=== PATIENT | male | born 1945 | race Caucasian/White ===

== ENCOUNTER 2018-05-05 05:47 | Inpatient (IN) ==
[2018-05-05 07:06] LABS: Basophils # 0.1 10*3/uL (0.0-0.2); Eosinophils # 0.2 10*3/uL (0.0-0.87); Hematocrit 43.4 VOL% (42.0-52.0); Hemoglobin 14.5 GM/DL (14.0-18.0); Immature Granulocytes % 0.3 %; Immature Granulocytes Absolute 0.02 #; Lymphocytes # 1.5 10*3/uL (1.4-4.0); Lymphocytes % 19.6 % (21.2-54.2); Mean Corpuscular HGB Conc 33.4 GM/DL (32-36); Mean Corpuscular Hemoglobin 33 PG (27-34); Mean Corpuscular Volume 97.3 FL (87-102); Mean Platelet Volume 10.1 FL (9.6-12.0); Monocytes # 0.7 10*3/uL (0.11-0.8); Monocytes % 8.7 % (1.7-12.7); Neutrophils # 5.2 10*3/uL (1.4-7.4); Neutrophils % 67.4 % (38.7-73.9); Platelet Count 200 T/CUMM (130-400); Red Blood Count 4.46 MC/CUMM (3.8-5.5); Red Cell Distribution Width 13.1 % (9.3-17.3); White Blood Count 7.7 T/CUMM (4-12)
[2018-05-05 07:25] LABS: Calcium 8.6 MG/DL (8.5-10.1); Osmolality,Calculated 281.3 MOS/KG (273-304); Potassium 3.6 MMOL/L (3.5-5.1)
[2018-05-05] MEDS ORDERED: ALBUTEROL 2.5 MG/3 ML NEB RESP TX ONE (07:31)
[2018-05-05] MEDS ORDERED: LIDOCAINE 1% 20 ML VIAL ONE (08:19)
[2018-05-05] MEDS ORDERED: HEPARIN/NACL 0.9% 2 UNITS/ML 2,000 ML IV ONE (08:19)
[2018-05-05] MEDS ORDERED: HEPARIN/NACL 0.9% 2 UNITS/ML 1,000 ML IV ONE (08:20)
[2018-05-05 08:48] LABS: Apearance,Urine CLEAR (Clear); Bilirubin,Urine Negative (Negative); Blood, Urine Negative (Negative); Glucose,Urine (UA) Negative (Negative); Ketones,Urine Negative (Negative); Mucus,Urine Occasional /LPF (Occasional); Nitrite,Urine Negative (Negative); Protein,Urine Negative; RBC,Urine 2 /HPF (0-4); Urine Color Straw (Yellow); Urine Specific Gravity 1.008 (1.001-1.035); Urine Urobilinogen < 2.0 EU/DL (0.2-1.0); WBC,Urine <1 /HPF (0-6)
[2018-05-05] MEDS ORDERED: HEPARIN DRIP 25,000 UNITS/500 ML PREMIX IV ONE (09:38)
[2018-05-05] MEDS ORDERED: GLUCAGON 1 MG VIAL IM PRN (11:34)
[2018-05-05] MEDS ORDERED: ZALEPLON 5 MG CAPSULE PO PRN (11:34)
[2018-05-05] MEDS ORDERED: MORPHINE 4 MG/1 ML VIAL IV PRN (11:34)
[2018-05-05] MEDS ORDERED: ASPIRIN EC 325 MG TABLET PO ONE ×2 (11:34→17:57)
[2018-05-05] MEDS ORDERED: ACETAMINOPHEN 325 MG TABLET PO PRN (11:34)
[2018-05-05] MEDS ORDERED: DEXTROSE 50% 25 GM/50 ML VIAL IV PRN (11:34)
[2018-05-05] MEDS ORDERED: ONDANSETRON 4 MG/2 ML VIAL IV PRN (11:34)
[2018-05-05] MEDS ORDERED: NITROGLYCERIN SL 0.4 MG TABLET SL PRN (11:35)
[2018-05-05] MEDS ORDERED: METOPROLOL SUCCINATE XL 50 MG TABLET PO SCH (12:00)
[2018-05-05] MEDS ORDERED: PHENYLEPHRINE 10 MG/1 ML VIAL IV ONE (12:18)
[2018-05-05] MEDS ORDERED: ETOMIDATE 40 MG/20 ML VIAL IV ONE (12:18)
[2018-05-05] MEDS ORDERED: PROPOFOL 200 MG/20 ML VIAL IV ONE (12:18)
[2018-05-05] MEDS ORDERED: SODIUM CHLORIDE 0.9% 250 ML IV ONE (12:18)
[2018-05-05] MEDS ORDERED: LACTATED RINGERS 1,000 ML IV ONE (12:18)
[2018-05-05] MEDS ORDERED: MIDAZOLAM 2 MG/2 ML VIAL ONE (12:18)
[2018-05-05] MEDS ORDERED: SEVOFLURANE 1 UNIT/15 MINUTE INH ONE (12:18)
[2018-05-05] MEDS ORDERED: ROCURONIUM 100 MG/10 ML VIAL IV ONE (12:18)
[2018-05-05] MEDS ORDERED: fentaNYL 100 MCG/2 ML VIAL ONE (12:18)
[2018-05-05] MEDS ORDERED: ONDANSETRON 4 MG/2 ML VIAL ONE (12:18)
[2018-05-05] MEDS ORDERED: FUROSEMIDE 20 MG/2 ML VIAL ONE (12:19)
[2018-05-05] MEDS ORDERED: PROTAMINE SULFATE 50 MG/5 ML VIAL IV ONE (12:19)
[2018-05-05] MEDS ORDERED: HEPARIN 10,000 UNIT/10 ML VIAL ONE (12:19)
[2018-05-05] MEDS ORDERED: INFLUENZA VIRUS VACCINE 0.5 ML SYRINGE IM ONE (13:37)
[2018-05-05] MEDS ORDERED: diphenhydrAMINE CAP 25 MG CAPSULE PO PRN (14:09)
[2018-05-05] MEDS: IPRATROPIUM 500 MCG/2.5 ML NEB RESP TX SCH ×2 (16:23→19:18)
[2018-05-05] MEDS: PANTOPRAZOLE 40 MG TABLET PO SCH ×2 (18:15→21:21)
[2018-05-05] MEDS: INSULIN LISPRO 100 UNIT/ML SUBCUT SCH ×2 (18:15→21:28)
[2018-05-05] MEDS: METOPROLOL SUCCINATE XL 50 MG TABLET PO SCH ×2 (18:15→21:20)
[2018-05-05] MEDS: metFORMIN 500 MG TABLET PO SCH (18:15)
[2018-05-05] MEDS ORDERED: ALBUTEROL 2.5 MG/3 ML NEB RESP TX PRN (19:00)
[2018-05-05] MEDS: MAGNESIUM OXIDE 400 MG TABLET PO SCH (21:20)
[2018-05-05] MEDS: ATORVASTATIN 20 MG TABLET PO SCH (21:20)
[2018-05-05] MEDS: amLODIPine 10 MG TABLET PO SCH (21:21)
[2018-05-05] MEDS: APIXABAN 5 MG TABLET PO SCH (21:21)
[2018-05-05] MEDS: CHOLECALCIFEROL 1,000 UNIT TABLET PO SCH (21:23)
[2018-05-06 04:35] LABS: Calcium 8.5 MG/DL (8.5-10.1)
[2018-05-06 04:37] LABS: Basophils # 0.1 10*3/uL (0.0-0.2); Basophils % 0.5 % (0.0-0.8); Eosinophils # 0.1 10*3/uL (0.0-0.87); Eosinophils % 0.7 % (0.00-10.9); Hematocrit 44.8 VOL% (42.0-52.0); Hemoglobin 14.6 GM/DL (14.0-18.0); Immature Granulocytes % 0.4 %; Immature Granulocytes Absolute 0.06 #; Lymphocytes # 1.4 10*3/uL (1.4-4.0); Lymphocytes % 10.6 % (21.2-54.2); Mean Corpuscular HGB Conc 32.6 GM/DL (32-36); Mean Corpuscular Hemoglobin 33 PG (27-34); Mean Corpuscular Volume 99.8 FL (87-102); Mean Platelet Volume 10.5 FL (9.6-12.0); Monocytes # 1.2 10*3/uL (0.11-0.8); Monocytes % 8.9 % (1.7-12.7); Neutrophils # 10.7 10*3/uL (1.4-7.4); Neutrophils % 78.9 % (38.7-73.9); Platelet Count 209 T/CUMM (130-400); Red Blood Count 4.49 MC/CUMM (3.8-5.5); Red Cell Distribution Width 13.3 % (9.3-17.3); White Blood Count 13.5 T/CUMM (4-12)
[2018-05-06 04:43] LABS: Calcium 8.6 MG/DL (8.5-10.1); Potassium 3.9 MMOL/L (3.5-5.1)
[2018-05-06] MEDS: IPRATROPIUM 500 MCG/2.5 ML NEB RESP TX SCH ×4 (07:21→19:09)
[2018-05-06] MEDS: LOSARTAN 50 MG TABLET PO SCH (08:10)
[2018-05-06] MEDS: APIXABAN 5 MG TABLET PO SCH ×2 (08:10→22:02)
[2018-05-06] MEDS: metFORMIN 500 MG TABLET PO SCH ×2 (08:10→16:37)
[2018-05-06] MEDS: ASPIRIN EC 81 MG TABLET PO SCH (08:10)
[2018-05-06] MEDS: METOPROLOL SUCCINATE XL 50 MG TABLET PO SCH ×2 (08:10→22:03)
[2018-05-06] MEDS: PANTOPRAZOLE 40 MG TABLET PO SCH ×2 (08:10→22:02)
[2018-05-06] MEDS: INSULIN LISPRO 100 UNIT/ML SUBCUT SCH ×4 (08:29→22:07)
[2018-05-06] MEDS ORDERED: FUROSEMIDE 40 MG TABLET PO ONE (09:53)
[2018-05-06] MEDS: methylPREDNISolone SOD SUC 40 MG/1 ML VIAL IV SCH ×2 (16:37→22:03)
[2018-05-06] MEDS: ATORVASTATIN 20 MG TABLET PO SCH (22:02)
[2018-05-06] MEDS: MAGNESIUM OXIDE 400 MG TABLET PO SCH (22:02)
[2018-05-06] MEDS: amLODIPine 10 MG TABLET PO SCH (22:03)
[2018-05-06] MEDS: CHOLECALCIFEROL 1,000 UNIT TABLET PO SCH (22:03)
[2018-05-07] MEDS: ALBUTEROL/IPRATROPIUM 3 ML NEB RESP TX SCH ×2 (00:18→07:09)
[2018-05-07] MEDS ORDERED: METOPROLOL TARTRATE 5 MG/5 ML VIAL IV PRN (02:07)
[2018-05-07] MEDS: methylPREDNISolone SOD SUC 40 MG/1 ML VIAL IV SCH ×2 (02:24→09:11)
[2018-05-07 03:43] LABS: Basophils % 0.2 % (0.0-0.8); Hematocrit 42.5 VOL% (42.0-52.0); Hemoglobin 14.1 GM/DL (14.0-18.0); Immature Granulocytes % 0.7 %; Immature Granulocytes Absolute 0.06 #; Lymphocytes # 0.3 10*3/uL (1.4-4.0); Lymphocytes % 3.6 % (21.2-54.2); Mean Corpuscular HGB Conc 33.2 GM/DL (32-36); Mean Corpuscular Hemoglobin 33 PG (27-34); Mean Corpuscular Volume 98.4 FL (87-102); Mean Platelet Volume 10.3 FL (9.6-12.0); Monocytes # 0.1 10*3/uL (0.11-0.8); Monocytes % 0.9 % (1.7-12.7); Neutrophils # 8.3 10*3/uL (1.4-7.4); Neutrophils % 94.6 % (38.7-73.9); Platelet Count 168 T/CUMM (130-400); Red Blood Count 4.32 MC/CUMM (3.8-5.5); Red Cell Distribution Width 12.9 % (9.3-17.3); White Blood Count 8.7 T/CUMM (4-12)
[2018-05-07 03:59] LABS: Calcium 8.7 MG/DL (8.5-10.1); Osmolality,Calculated 279.2 MOS/KG (273-304); Potassium 3.8 MMOL/L (3.5-5.1)
[2018-05-07 04:23] LABS: Hypochromasia 1+; Lymphocytes 2 % (20-55); Platelet Estimate Adequate; Segmented Neutrophils 96 % (50-85); Total Cells Counted 100
[2018-05-07] MEDS: INSULIN LISPRO 100 UNIT/ML SUBCUT SCH ×2 (08:58→12:14)
[2018-05-07] MEDS: ASPIRIN EC 81 MG TABLET PO SCH (09:10)
[2018-05-07] MEDS: metFORMIN 500 MG TABLET PO SCH (09:10)
[2018-05-07] MEDS: METOPROLOL SUCCINATE XL 50 MG TABLET PO SCH (09:10)
[2018-05-07] MEDS: PANTOPRAZOLE 40 MG TABLET PO SCH (09:11)
[2018-05-07] MEDS: LOSARTAN 50 MG TABLET PO SCH (09:11)
[2018-05-07] MEDS: APIXABAN 5 MG TABLET PO SCH (09:11)
[2018-05-07 12:32] VITALS: BP 134/72
== END 2018-05-07 13:50 | disposition home or self-care (01) | DRG 274 ==
LOC: N.CL 05:47 → N.TELES 12:45
PROVIDERS: ADMIT Internal Medicine Clinical Cardiac Electrophysiology; ATTEND Internal Medicine Clinical Cardiac Electrophysiology

== ENCOUNTER 2018-07-08 11:14 | Inpatient (IN) ==
[2018-07-08] MEDS ORDERED: FUROSEMIDE 100 MG/10 ML VIAL IV STA (12:20)
[2018-07-08] MEDS ORDERED: ALBUTEROL 2.5 MG/3 ML NEB RESP TX STA (12:20)
[2018-07-08 13:04] LABS: Albumin 3.5 G/DL (3.4-5.0); Bilirubin,Total 0.8 MG/DL (0.2-1.0); Calcium 8.5 MG/DL (8.5-10.1); Osmolality,Calculated 288.3 MOS/KG (273-304); Total Protein 7.7 G/DL (6.4-8.3)
[2018-07-08 13:10] LABS: Basophils # 0.1 10*3/uL (0.0-0.2); Basophils % 0.7 % (0.0-0.8); Eosinophils # 0.1 10*3/uL (0.0-0.87); Eosinophils % 0.9 % (0.00-10.9); Hematocrit 42.7 VOL% (42.0-52.0); Hemoglobin 13.7 GM/DL (14.0-18.0); Immature Granulocytes % 0.2 %; Immature Granulocytes Absolute 0.02 #; Lymphocytes # 1.4 10*3/uL (1.4-4.0); Lymphocytes % 17.1 % (21.2-54.2); Mean Corpuscular HGB Conc 32.1 GM/DL (32-36); Mean Corpuscular Hemoglobin 32 PG (27-34); Mean Corpuscular Volume 99.8 FL (87-102); Mean Platelet Volume 10.5 FL (9.6-12.0); Monocytes # 0.7 10*3/uL (0.11-0.8); Monocytes % 8.3 % (1.7-12.7); Neutrophils # 5.9 10*3/uL (1.4-7.4); Neutrophils % 72.8 % (38.7-73.9); Platelet Count 200 T/CUMM (130-400); Red Blood Count 4.28 MC/CUMM (3.8-5.5); Red Cell Distribution Width 14.3 % (9.3-17.3); White Blood Count 8.1 T/CUMM (4-12)
[2018-07-08 13:20] LABS: INR 1.2; PT Patient Result 12.8 SECS; Partial Thromboplastin Time 29.2 SECS (0-40)
[2018-07-08] MEDS ORDERED: MAGNESIUM SULF RIDER 4 GM in PREMIX 1 EACH IV PRN (15:07)
[2018-07-08] MEDS ORDERED: ONDANSETRON 4 MG/2 ML VIAL IV PRN (15:07)
[2018-07-08] MEDS ORDERED: MAGNESIUM SULF RIDER 2 GM in PREMIX 1 EACH IV PRN (15:07)
[2018-07-08] MEDS ORDERED: ACETAMINOPHEN 325 MG TABLET PO PRN (15:07)
[2018-07-08] MEDS ORDERED: ZALEPLON 5 MG CAPSULE PO PRN (15:07)
[2018-07-08 17:00] LABS: Troponin I 0.022 NG/ML (0.00-0.045)
[2018-07-08] MEDS ORDERED: ALBUTEROL 2.5 MG/3 ML NEB RESP TX PRN (17:21)
[2018-07-08] MEDS ORDERED: NITROGLYCERIN SL 0.4 MG TABLET SL PRN (17:21)
[2018-07-08] MEDS ORDERED: ALBUTEROL/IPRATROPIUM 3 ML NEB RESP TX SCH (19:00)
[2018-07-08] MEDS: ARFORMOTEROL 15 MCG/2 ML NEB RESP TX SCH (20:17)
[2018-07-08 20:36] LABS: Apearance,Urine CLEAR (Clear); Bacteria,Urine Occasional /HPF (Few); Bilirubin,Urine Negative (Negative); Blood, Urine Negative (Negative); Glucose,Urine (UA) Negative (Negative); Hyaline Casts,Urine 4 /LPF (0-3); Ketones,Urine Negative (Negative); Mucus,Urine Occasional /LPF (Occasional); Nitrite,Urine Negative (Negative); Protein,Urine Negative; RBC,Urine <1 /HPF (0-4); Urine Color Yellow (Yellow); Urine Specific Gravity 1.006 (1.001-1.035); Urine Urobilinogen < 2.0 EU/DL (0.2-1.0)
[2018-07-08] MEDS: ALBUTEROL/IPRATROPIUM 3 ML NEB RESP TX PRN (21:11)
[2018-07-08] MEDS: CHOLECALCIFEROL 1,000 UNIT TABLET PO SCH (22:18)
[2018-07-08] MEDS: DILTIAZEM CD 240 MG CAPSULE PO SCH (22:18)
[2018-07-08] MEDS: ATORVASTATIN 20 MG TABLET PO SCH (22:19)
[2018-07-08] MEDS: FUROSEMIDE 40 MG/4 ML VIAL IV SCH (22:19)
[2018-07-08] MEDS: APIXABAN 5 MG TABLET PO SCH (22:19)
[2018-07-08] MEDS: POTASSIUM CHLORIDE 20 MEQ TABLET PO SCH ×2 (22:20→22:21)
[2018-07-08] MEDS: METOPROLOL SUCCINATE XL 100 MG TABLET PO SCH (22:22)
[2018-07-08] MEDS: MAGNESIUM OXIDE 400 MG TABLET PO SCH (22:23)
[2018-07-08 22:54] LABS: ABG Base Excess 4.8 MMOL/L (-2.5-2.5); ABG Oxygen Saturation 69.1 % (95-100); ABG PCO2 41.8 MM HG (35-48); ABG PH 7.453 (7.35-7.45); ABG TCO2 25.2 MMOL/L (23-27); Allen Test Positive
[2018-07-08 23:02] LABS: ABG PO2 37.7 MM HG (80-95)
[2018-07-08] MEDS: INSULIN REGULAR 100 UNIT/ML SUBCUT SCH ×2 (23:45→23:48)
[2018-07-08 23:46] LABS: Troponin I 0.018 NG/ML (0.00-0.045)
[2018-07-09] MEDS: ALBUTEROL/IPRATROPIUM 3 ML NEB RESP TX PRN (00:57)
[2018-07-09 06:13] LABS: Basophils # 0.1 10*3/uL (0.0-0.2); Basophils % 0.8 % (0.0-0.8); Eosinophils # 0.1 10*3/uL (0.0-0.87); Eosinophils % 1.2 % (0.00-10.9); Hematocrit 42.4 VOL% (42.0-52.0); Hemoglobin 13.7 GM/DL (14.0-18.0); Immature Granulocytes % 0.2 %; Immature Granulocytes Absolute 0.02 #; Lymphocytes # 1.5 10*3/uL (1.4-4.0); Lymphocytes % 17.2 % (21.2-54.2); Mean Corpuscular HGB Conc 32.3 GM/DL (32-36); Mean Corpuscular Hemoglobin 32 PG (27-34); Mean Corpuscular Volume 98.4 FL (87-102); Mean Platelet Volume 10.8 FL (9.6-12.0); Monocytes # 0.9 10*3/uL (0.11-0.8); Monocytes % 10.4 % (1.7-12.7); Neutrophils % 70.2 % (38.7-73.9); Platelet Count 225 T/CUMM (130-400); Red Blood Count 4.31 MC/CUMM (3.8-5.5); Red Cell Distribution Width 14.3 % (9.3-17.3); White Blood Count 8.5 T/CUMM (4-12)
[2018-07-09 06:38] LABS: Calcium 8.7 MG/DL (8.5-10.1); Potassium 3.5 MMOL/L (3.5-5.1); Risk Ratio 2.69
[2018-07-09] MEDS: ARFORMOTEROL 15 MCG/2 ML NEB RESP TX SCH ×2 (07:49→19:00)
[2018-07-09 08:25] LABS: Troponin I 0.018 NG/ML (0.00-0.045)
[2018-07-09] MEDS: LOSARTAN 50 MG TABLET PO SCH (09:38)
[2018-07-09] MEDS: DILTIAZEM CD 240 MG CAPSULE PO SCH ×2 (09:38→21:31)
[2018-07-09] MEDS: POTASSIUM CHLORIDE 20 MEQ TABLET PO SCH ×2 (09:38→21:42)
[2018-07-09] MEDS: APIXABAN 5 MG TABLET PO SCH ×2 (09:38→21:33)
[2018-07-09] MEDS: ASPIRIN EC 81 MG TABLET PO SCH (09:39)
[2018-07-09] MEDS: INSULIN REGULAR 100 UNIT/ML SUBCUT SCH ×4 (09:39→21:36)
[2018-07-09] MEDS: FUROSEMIDE 40 MG/4 ML VIAL IV SCH ×2 (09:39→21:36)
[2018-07-09] MEDS: METOPROLOL SUCCINATE XL 100 MG TABLET PO SCH ×2 (09:39→21:31)
[2018-07-09] MEDS: PANTOPRAZOLE 40 MG TABLET PO SCH (09:39)
[2018-07-09] MEDS: methylPREDNISolone SOD SUC 40 MG/1 ML VIAL IV SCH ×3 (09:53→21:27)
[2018-07-09] MEDS: ALBUTEROL/IPRATROPIUM 3 ML NEB RESP TX SCH ×4 (13:43→23:00)
[2018-07-09] MEDS: MAGNESIUM OXIDE 400 MG TABLET PO SCH (21:32)
[2018-07-09] MEDS: ATORVASTATIN 20 MG TABLET PO SCH (21:32)
[2018-07-09] MEDS: CHOLECALCIFEROL 1,000 UNIT TABLET PO SCH (21:32)
[2018-07-10] MEDS: ALBUTEROL/IPRATROPIUM 3 ML NEB RESP TX SCH ×6 (03:09→23:51)
[2018-07-10] MEDS: methylPREDNISolone SOD SUC 40 MG/1 ML VIAL IV SCH ×4 (03:37→20:37)
[2018-07-10 05:22] LABS: Basophils % 0.1 % (0.0-0.8); Hematocrit 42.1 VOL% (42.0-52.0); Hemoglobin 13.5 GM/DL (14.0-18.0); Immature Granulocytes % 0.4 %; Immature Granulocytes Absolute 0.03 #; Lymphocytes # 0.3 10*3/uL (1.4-4.0); Lymphocytes % 4.5 % (21.2-54.2); Mean Corpuscular HGB Conc 32.1 GM/DL (32-36); Mean Corpuscular Hemoglobin 32 PG (27-34); Mean Corpuscular Volume 99.1 FL (87-102); Mean Platelet Volume 10.8 FL (9.6-12.0); Monocytes # 0.2 10*3/uL (0.11-0.8); Monocytes % 2.3 % (1.7-12.7); Neutrophils # 6.8 10*3/uL (1.4-7.4); Neutrophils % 92.7 % (38.7-73.9); Platelet Count 228 T/CUMM (130-400); Red Blood Count 4.25 MC/CUMM (3.8-5.5); White Blood Count 7.3 T/CUMM (4-12)
[2018-07-10 05:59] LABS: Calcium 9.3 MG/DL (8.5-10.1); Osmolality,Calculated 285.7 MOS/KG (273-304); Potassium 4.4 MMOL/L (3.5-5.1)
[2018-07-10 06:08] LABS: Hypochromasia 1+; Lymphocytes 4 % (20-55); Platelet Estimate Adequate; Segmented Neutrophils 95 % (50-85); Total Cells Counted 100
[2018-07-10] MEDS: ARFORMOTEROL 15 MCG/2 ML NEB RESP TX SCH ×2 (07:29→19:32)
[2018-07-10] MEDS: DILTIAZEM CD 240 MG CAPSULE PO SCH (08:42)
[2018-07-10] MEDS: POTASSIUM CHLORIDE 20 MEQ TABLET PO SCH ×2 (08:42→20:36)
[2018-07-10] MEDS: METOPROLOL SUCCINATE XL 100 MG TABLET PO SCH ×2 (08:42→20:36)
[2018-07-10] MEDS: ASPIRIN EC 81 MG TABLET PO SCH (08:42)
[2018-07-10] MEDS: PANTOPRAZOLE 40 MG TABLET PO SCH (08:42)
[2018-07-10] MEDS: APIXABAN 5 MG TABLET PO SCH ×2 (08:42→20:36)
[2018-07-10] MEDS: LOSARTAN 50 MG TABLET PO SCH (08:42)
[2018-07-10] MEDS: FUROSEMIDE 40 MG/4 ML VIAL IV SCH ×2 (08:43→16:36)
[2018-07-10] MEDS: INSULIN REGULAR 100 UNIT/ML SUBCUT SCH ×4 (09:01→22:26)
[2018-07-10] MEDS: DOCUSATE SODIUM 100 MG CAPSULE PO PRN (18:15)
[2018-07-10] MEDS: CHOLECALCIFEROL 1,000 UNIT TABLET PO SCH (20:36)
[2018-07-10] MEDS: ATORVASTATIN 20 MG TABLET PO SCH (20:36)
[2018-07-10] MEDS: MAGNESIUM OXIDE 400 MG TABLET PO SCH (20:36)
[2018-07-11] MEDS: FUROSEMIDE 40 MG/4 ML VIAL IV SCH ×2 (00:10→09:20)
[2018-07-11] MEDS: methylPREDNISolone SOD SUC 40 MG/1 ML VIAL IV SCH ×4 (03:15→20:21)
[2018-07-11] MEDS: ALBUTEROL/IPRATROPIUM 3 ML NEB RESP TX SCH ×5 (03:36→18:54)
[2018-07-11 03:40] LABS: Basophils % 0.1 % (0.0-0.8); Hematocrit 40.5 VOL% (42.0-52.0); Hemoglobin 13.2 GM/DL (14.0-18.0); Immature Granulocytes % 1.1 %; Immature Granulocytes Absolute 0.16 #; Lymphocytes # 0.4 10*3/uL (1.4-4.0); Lymphocytes % 2.8 % (21.2-54.2); Mean Corpuscular HGB Conc 32.6 GM/DL (32-36); Mean Corpuscular Hemoglobin 32 PG (27-34); Mean Corpuscular Volume 98.1 FL (87-102); Mean Platelet Volume 10.8 FL (9.6-12.0); Monocytes # 0.5 10*3/uL (0.11-0.8); Monocytes % 3.9 % (1.7-12.7); Neutrophils # 12.8 10*3/uL (1.4-7.4); Neutrophils % 92.1 % (38.7-73.9); Platelet Count 240 T/CUMM (130-400); Red Blood Count 4.13 MC/CUMM (3.8-5.5); Red Cell Distribution Width 14.4 % (9.3-17.3); White Blood Count 13.9 T/CUMM (4-12)
[2018-07-11 04:04] LABS: Calcium 8.9 MG/DL (8.5-10.1); Osmolality,Calculated 284.1 MOS/KG (273-304)
[2018-07-11 05:14] LABS: Lymphocytes 3 % (20-55); Platelet Estimate Normal; Segmented Neutrophils 94 % (50-85); Total Cells Counted 100
[2018-07-11 05:15] LABS: Hypochromasia 2+
[2018-07-11] MEDS: METOPROLOL SUCCINATE XL 100 MG TABLET PO SCH ×2 (08:41→20:21)
[2018-07-11] MEDS: LOSARTAN 50 MG TABLET PO SCH (08:41)
[2018-07-11] MEDS: ASPIRIN EC 81 MG TABLET PO SCH (08:42)
[2018-07-11] MEDS: POTASSIUM CHLORIDE 20 MEQ TABLET PO SCH ×2 (08:42→20:20)
[2018-07-11] MEDS: PANTOPRAZOLE 40 MG TABLET PO SCH (08:42)
[2018-07-11] MEDS: APIXABAN 5 MG TABLET PO SCH ×2 (08:42→20:19)
[2018-07-11] MEDS: ARFORMOTEROL 15 MCG/2 ML NEB RESP TX SCH ×2 (08:55→18:54)
[2018-07-11] MEDS: INSULIN REGULAR 100 UNIT/ML SUBCUT SCH ×4 (08:57→20:20)
[2018-07-11] MEDS ORDERED: FUROSEMIDE 40 MG/4 ML VIAL IV SCH (09:00)
[2018-07-11] MEDS: DOCUSATE SODIUM 100 MG CAPSULE PO PRN (14:41)
[2018-07-11] MEDS: ATORVASTATIN 20 MG TABLET PO SCH (20:20)
[2018-07-11] MEDS: MAGNESIUM OXIDE 400 MG TABLET PO SCH (20:21)
[2018-07-11] MEDS: CHOLECALCIFEROL 1,000 UNIT TABLET PO SCH (20:21)
[2018-07-12] MEDS: ALBUTEROL/IPRATROPIUM 3 ML NEB RESP TX SCH ×7 (00:24→23:27)
[2018-07-12] MEDS: methylPREDNISolone SOD SUC 40 MG/1 ML VIAL IV SCH ×4 (03:10→17:21)
[2018-07-12 05:08] LABS: Basophils % 0.1 % (0.0-0.8); Hematocrit 41.1 VOL% (42.0-52.0); Immature Granulocytes % 0.9 %; Immature Granulocytes Absolute 0.11 #; Lymphocytes # 0.3 10*3/uL (1.4-4.0); Lymphocytes % 2.4 % (21.2-54.2); Mean Corpuscular HGB Conc 31.6 GM/DL (32-36); Mean Corpuscular Hemoglobin 32 PG (27-34); Mean Platelet Volume 10.6 FL (9.6-12.0); Monocytes # 0.4 10*3/uL (0.11-0.8); Monocytes % 3.6 % (1.7-12.7); Platelet Count 226 T/CUMM (130-400); Red Blood Count 4.11 MC/CUMM (3.8-5.5); Red Cell Distribution Width 14.3 % (9.3-17.3); White Blood Count 11.8 T/CUMM (4-12)
[2018-07-12 05:24] LABS: Calcium 7.7 MG/DL (8.5-10.1); Potassium 5.2 MMOL/L (3.5-5.1)
[2018-07-12 05:32] LABS: Hypochromasia 1+; Lymphocytes 1 % (20-55); Segmented Neutrophils 96 % (50-85); Total Cells Counted 100
[2018-07-12 05:33] LABS: Microcytosis Slight; Platelet Estimate Normal
[2018-07-12] MEDS: ARFORMOTEROL 15 MCG/2 ML NEB RESP TX SCH ×2 (07:51→20:25)
[2018-07-12] MEDS ORDERED: FUROSEMIDE 40 MG/4 ML VIAL IV SCH (09:00)
[2018-07-12] MEDS: INSULIN REGULAR 100 UNIT/ML SUBCUT SCH ×4 (09:13→21:26)
[2018-07-12] MEDS: METOPROLOL SUCCINATE XL 100 MG TABLET PO SCH ×2 (09:14→21:04)
[2018-07-12] MEDS: LOSARTAN 50 MG TABLET PO SCH (09:14)
[2018-07-12] MEDS: PANTOPRAZOLE 40 MG TABLET PO SCH (09:15)
[2018-07-12] MEDS: APIXABAN 5 MG TABLET PO SCH ×2 (09:15→21:03)
[2018-07-12] MEDS: ASPIRIN EC 81 MG TABLET PO SCH (09:15)
[2018-07-12] MEDS: POTASSIUM CHLORIDE 20 MEQ TABLET PO SCH (09:17)
[2018-07-12] MEDS: metOLazone 5 MG TABLET PO SCH (12:20)
[2018-07-12] MEDS: DILTIAZEM CD 120 MG CAPSULE PO SCH (15:39)
[2018-07-12] MEDS: DIGOXIN 0.25 MG TABLET PO SCH ×2 (15:39→21:03)
[2018-07-12] MEDS: FUROSEMIDE 40 MG/4 ML VIAL IV SCH (15:39)
[2018-07-12] MEDS: ATORVASTATIN 20 MG TABLET PO SCH (21:04)
[2018-07-12] MEDS: MAGNESIUM OXIDE 400 MG TABLET PO SCH (21:04)
[2018-07-12] MEDS: CHOLECALCIFEROL 1,000 UNIT TABLET PO SCH (21:04)
[2018-07-13] MEDS: methylPREDNISolone SOD SUC 40 MG/1 ML VIAL IV SCH ×3 (02:12→17:59)
[2018-07-13] MEDS: ALBUTEROL/IPRATROPIUM 3 ML NEB RESP TX SCH ×6 (02:31→22:32)
[2018-07-13 04:32] LABS: Calcium 8.8 MG/DL (8.5-10.1)
[2018-07-13 06:59] LABS: Basophils % 0.2 % (0.0-0.8); Hematocrit 44.7 VOL% (42.0-52.0); Hemoglobin 14.2 GM/DL (14.0-18.0); Immature Granulocytes % 0.7 %; Immature Granulocytes Absolute 0.09 #; Lymphocytes # 0.4 10*3/uL (1.4-4.0); Mean Corpuscular HGB Conc 31.8 GM/DL (32-36); Mean Corpuscular Hemoglobin 32 PG (27-34); Mean Corpuscular Volume 99.6 FL (87-102); Monocytes # 0.7 10*3/uL (0.11-0.8); Monocytes % 5.3 % (1.7-12.7); Neutrophils # 11.3 10*3/uL (1.4-7.4); Neutrophils % 90.8 % (38.7-73.9); Platelet Count 249 T/CUMM (130-400); Red Blood Count 4.49 MC/CUMM (3.8-5.5); Red Cell Distribution Width 13.9 % (9.3-17.3); White Blood Count 12.5 T/CUMM (4-12)
[2018-07-13 07:19] LABS: Hypochromasia 1+; Lymphocytes 3 % (20-55); Segmented Neutrophils 91 % (50-85); Total Cells Counted 100
[2018-07-13 07:20] LABS: Microcytosis Slight; Platelet Estimate Normal
[2018-07-13] MEDS: ARFORMOTEROL 15 MCG/2 ML NEB RESP TX SCH ×2 (07:52→19:22)
[2018-07-13] MEDS: INSULIN REGULAR 100 UNIT/ML SUBCUT SCH ×4 (09:05→20:33)
[2018-07-13] MEDS: ASPIRIN EC 81 MG TABLET PO SCH (09:06)
[2018-07-13] MEDS: metOLazone 5 MG TABLET PO SCH (09:08)
[2018-07-13] MEDS: DILTIAZEM CD 120 MG CAPSULE PO SCH (09:08)
[2018-07-13] MEDS: FUROSEMIDE 40 MG/4 ML VIAL IV SCH ×2 (09:09→16:17)
[2018-07-13] MEDS: LOSARTAN 50 MG TABLET PO SCH (09:09)
[2018-07-13] MEDS: PANTOPRAZOLE 40 MG TABLET PO SCH (09:10)
[2018-07-13] MEDS: METOPROLOL SUCCINATE XL 100 MG TABLET PO SCH ×2 (09:10→20:34)
[2018-07-13] MEDS: APIXABAN 5 MG TABLET PO SCH ×2 (09:10→20:33)
[2018-07-13] MEDS ORDERED: ceFAZolin 1,000 MG in SYRINGE 1 EACH IV ONE (11:16)
[2018-07-13] MEDS: DIGOXIN 0.125 MG TABLET PO SCH (12:26)
[2018-07-13] MEDS: ATORVASTATIN 20 MG TABLET PO SCH (20:33)
[2018-07-13] MEDS: MAGNESIUM OXIDE 400 MG TABLET PO SCH (20:33)
[2018-07-13] MEDS: CHOLECALCIFEROL 1,000 UNIT TABLET PO SCH (20:34)
[2018-07-14] MEDS: methylPREDNISolone SOD SUC 40 MG/1 ML VIAL IV SCH ×3 (02:22→19:16)
[2018-07-14] MEDS: ALBUTEROL/IPRATROPIUM 3 ML NEB RESP TX SCH ×6 (02:30→22:51)
[2018-07-14 02:51] LABS: Basophils % 0.2 % (0.0-0.8); Hematocrit 47.7 VOL% (42.0-52.0); Hemoglobin 15.5 GM/DL (14.0-18.0); Immature Granulocytes % 0.6 %; Immature Granulocytes Absolute 0.08 #; Lymphocytes # 0.5 10*3/uL (1.4-4.0); Lymphocytes % 3.6 % (21.2-54.2); Mean Corpuscular HGB Conc 32.5 GM/DL (32-36); Mean Corpuscular Hemoglobin 31 PG (27-34); Mean Corpuscular Volume 96.6 FL (87-102); Mean Platelet Volume 10.6 FL (9.6-12.0); Monocytes # 0.7 10*3/uL (0.11-0.8); Monocytes % 5.8 % (1.7-12.7); Neutrophils # 11.2 10*3/uL (1.4-7.4); Neutrophils % 89.8 % (38.7-73.9); Platelet Count 259 T/CUMM (130-400); Red Blood Count 4.94 MC/CUMM (3.8-5.5); Red Cell Distribution Width 13.6 % (9.3-17.3); White Blood Count 12.5 T/CUMM (4-12)
[2018-07-14 03:05] LABS: Calcium 8.9 MG/DL (8.5-10.1); Osmolality,Calculated 285.2 MOS/KG (273-304); Potassium 3.4 MMOL/L (3.5-5.1)
[2018-07-14 03:06] LABS: Calcium 8.8 MG/DL (8.5-10.1); Osmolality,Calculated 286.1 MOS/KG (273-304); Potassium 3.4 MMOL/L (3.5-5.1)
[2018-07-14 03:26] LABS: Hypochromasia Slight; Lymphocytes 3 % (20-55); Platelet Estimate Adequate; Polychromasia Few; Segmented Neutrophils 97 % (50-85); Total Cells Counted 100
[2018-07-14] MEDS: ARFORMOTEROL 15 MCG/2 ML NEB RESP TX SCH ×2 (07:37→19:12)
[2018-07-14] MEDS ORDERED: HEPARIN/NACL 0.9% 2 UNITS/ML 1,000 ML IV ONE (08:57)
[2018-07-14] MEDS ORDERED: LIDOCAINE 1% 20 ML VIAL ONE (08:57)
[2018-07-14] MEDS ORDERED: ceFAZolin 1,000 MG VIAL ONE (09:18)
[2018-07-14] MEDS: INSULIN REGULAR 100 UNIT/ML SUBCUT SCH ×4 (09:55→21:26)
[2018-07-14] MEDS ORDERED: PROPOFOL 200 MG/20 ML VIAL IV ONE (11:41)
[2018-07-14] MEDS ORDERED: fentaNYL 100 MCG/2 ML VIAL ONE (11:42)
[2018-07-14] MEDS ORDERED: PROTAMINE SULFATE 50 MG/5 ML VIAL IV ONE (11:42)
[2018-07-14] MEDS ORDERED: MIDAZOLAM 2 MG/2 ML VIAL ONE (11:42)
[2018-07-14] MEDS ORDERED: HEPARIN 10,000 UNIT/10 ML VIAL ONE (11:42)
[2018-07-14] MEDS ORDERED: SODIUM CHLORIDE 0.9% 500 ML IV ONE (11:42)
[2018-07-14] MEDS: FUROSEMIDE 40 MG/4 ML VIAL IV SCH ×2 (12:34→15:56)
[2018-07-14] MEDS: APIXABAN 5 MG TABLET PO SCH ×2 (12:35→21:24)
[2018-07-14] MEDS: metOLazone 5 MG TABLET PO SCH (12:44)
[2018-07-14] MEDS: DILTIAZEM CD 120 MG CAPSULE PO SCH (12:44)
[2018-07-14] MEDS: DIGOXIN 0.125 MG TABLET PO SCH (12:45)
[2018-07-14] MEDS: LOSARTAN 50 MG TABLET PO SCH (12:45)
[2018-07-14] MEDS: PANTOPRAZOLE 40 MG TABLET PO SCH (12:45)
[2018-07-14] MEDS: ASPIRIN EC 81 MG TABLET PO SCH (12:45)
[2018-07-14] MEDS ORDERED: MAGNESIUM HYDROXIDE SUSP 30 ML UDCUP PO PRN (16:32)
[2018-07-14] MEDS ORDERED: diphenhydrAMINE CAP 25 MG CAPSULE PO PRN (16:32)
[2018-07-14] MEDS: ATORVASTATIN 20 MG TABLET PO SCH (21:24)
[2018-07-14] MEDS: MAGNESIUM OXIDE 400 MG TABLET PO SCH (21:25)
[2018-07-14] MEDS: CHOLECALCIFEROL 1,000 UNIT TABLET PO SCH (21:25)
[2018-07-15] MEDS: methylPREDNISolone SOD SUC 40 MG/1 ML VIAL IV SCH ×2 (02:13→10:52)
[2018-07-15] MEDS: ALBUTEROL/IPRATROPIUM 3 ML NEB RESP TX SCH ×3 (02:43→11:07)
[2018-07-15 03:35] LABS: Basophils % 0.1 % (0.0-0.8); Hematocrit 42.9 VOL% (42.0-52.0); Hemoglobin 13.9 GM/DL (14.0-18.0); Immature Granulocytes % 0.6 %; Immature Granulocytes Absolute 0.08 #; Lymphocytes # 0.4 10*3/uL (1.4-4.0); Lymphocytes % 2.9 % (21.2-54.2); Mean Corpuscular HGB Conc 32.4 GM/DL (32-36); Mean Corpuscular Hemoglobin 31 PG (27-34); Mean Corpuscular Volume 96.4 FL (87-102); Mean Platelet Volume 10.4 FL (9.6-12.0); Monocytes % 6.9 % (1.7-12.7); Neutrophils # 12.5 10*3/uL (1.4-7.4); Neutrophils % 89.5 % (38.7-73.9); Platelet Count 253 T/CUMM (130-400); Red Blood Count 4.45 MC/CUMM (3.8-5.5); Red Cell Distribution Width 13.3 % (9.3-17.3)
[2018-07-15 03:43] LABS: Calcium 8.6 MG/DL (8.5-10.1); Osmolality,Calculated 290.8 MOS/KG (273-304); Potassium 3.4 MMOL/L (3.5-5.1)
[2018-07-15 04:01] LABS: Lymphocytes 4 % (20-55); Segmented Neutrophils 90 % (50-85)
[2018-07-15 04:02] LABS: Platelet Estimate Normal
[2018-07-15 04:03] LABS: Total Cells Counted 100
[2018-07-15] MEDS: POTASSIUM CHLORIDE 20 MEQ TABLET PO PRN ×2 (06:16→08:18)
[2018-07-15] MEDS: ARFORMOTEROL 15 MCG/2 ML NEB RESP TX SCH (07:51)
[2018-07-15] MEDS: LOSARTAN 50 MG TABLET PO SCH (08:17)
[2018-07-15] MEDS: ASPIRIN EC 81 MG TABLET PO SCH (08:17)
[2018-07-15] MEDS: PANTOPRAZOLE 40 MG TABLET PO SCH (08:17)
[2018-07-15] MEDS: APIXABAN 5 MG TABLET PO SCH (08:18)
[2018-07-15] MEDS: FUROSEMIDE 40 MG/4 ML VIAL IV SCH (08:18)
[2018-07-15] MEDS: INSULIN REGULAR 100 UNIT/ML SUBCUT SCH (08:18)
[2018-07-15] MEDS ORDERED: METOPROLOL SUCCINATE XL 100 MG TABLET PO SCH (09:00)
[2018-07-15 11:55] VITALS: BP 118/58
[2018-07-15] MEDS: DIGOXIN 0.125 MG TABLET PO SCH (13:20)
== END 2018-07-15 13:00 | disposition home or self-care (01) | DRG 228 ==
LOC: N.ED 11:14 → N.EDINP 11:14 → OBSVTOIN 15:07 → N.TELEN 19:34
PROVIDERS: ADMIT Internal Medicine Clinical Cardiac Electrophysiology; ATTEND Internal Medicine Clinical Cardiac Electrophysiology
PROC: CLMICRA (2018-07-14 09:15)

== ENCOUNTER 2018-08-01 23:17 | Inpatient (IN) ==
[2018-08-01] MEDS ORDERED: ALBUTEROL 2.5 MG/3 ML NEB RESP TX SCH (23:45)
[2018-08-01] MEDS ORDERED: methylPREDNISolone SOD SUC 125 MG/2 ML VIAL IV STA (23:46)
[2018-08-01] MEDS ORDERED: FUROSEMIDE 100 MG/10 ML VIAL IV STA (23:46)
[2018-08-01 23:54] LABS: Basophils % 0.3 % (0.0-0.8); Eosinophils # 0.1 10*3/uL (0.0-0.87); Eosinophils % 0.7 % (0.00-10.9); Hematocrit 42.1 VOL% (42.0-52.0); Hemoglobin 13.5 GM/DL (14.0-18.0); Immature Granulocytes % 0.5 %; Immature Granulocytes Absolute 0.05 #; Lymphocytes % 18.2 % (21.2-54.2); Mean Corpuscular HGB Conc 32.1 GM/DL (32-36); Mean Corpuscular Volume 98.1 FL (87-102); Mean Platelet Volume 11.1 FL (9.6-12.0); Monocytes % 7.1 % (1.7-12.7); Neutrophils % 73.2 % (38.7-73.9); Platelet Count 193 T/CUMM (130-400); Red Blood Count 4.29 MC/CUMM (3.8-5.5); Red Cell Distribution Width 14.6 % (9.3-17.3); White Blood Count 10.7 T/CUMM (4-12)
[2018-08-02 00:03] LABS: INR 1.1; PT Patient Result 12.3 SECS
[2018-08-02 00:16] LABS: ABG Base Excess -0.7 MMOL/L (-2.5-2.5); ABG HCO3 23.1 MMOL/L (20-26); ABG Oxygen Saturation 95.4 % (95-100); ABG PCO2 35.8 MM HG (35-48); ABG PH 7.428 (7.35-7.45); ABG PO2 81.5 MM HG (80-95); ABG TCO2 24.2 MMOL/L (23-27); Allen Test Positive
[2018-08-02 00:18] LABS: Albumin 3.3 G/DL (3.4-5.0); Bilirubin,Total 1.2 MG/DL (0.2-1.0); Osmolality,Calculated 294.4 MOS/KG (273-304); Total Protein 6.7 G/DL (6.4-8.3)
[2018-08-02] MEDS ORDERED: LORazepam 2 MG/1 ML VIAL ONE (00:26)
[2018-08-02] MEDS ORDERED: LORazepam 2 MG/1 ML VIAL IM STA (00:26)
[2018-08-02] MEDS ORDERED: NITROGLYCERIN DRIP 50 MG/250 ML BOTTLE IV ONE (00:29)
[2018-08-02] MEDS ORDERED: LORazepam 2 MG/1 ML VIAL IV STA (00:57)
[2018-08-02] MEDS: NITROGLYCERIN DRIP 50 MG/250 ML BOTTLE IV SCH (00:58)
[2018-08-02] MEDS ORDERED: GLUCAGON 1 MG VIAL IM PRN (01:39)
[2018-08-02] MEDS ORDERED: DEXTROSE 50% 25 GM/50 ML SYRINGE IV PRN (01:39)
[2018-08-02] MEDS ORDERED: ONDANSETRON 4 MG/2 ML VIAL IV PRN (01:39)
[2018-08-02] MEDS ORDERED: ACETAMINOPHEN 325 MG TABLET PO PRN (01:39)
[2018-08-02 01:44] LABS: ABG Base Excess -0.5 MMOL/L (-2.5-2.5); ABG Oxygen Saturation 96.9 % (95-100); ABG PCO2 45.1 MM HG (35-48); ABG PH 7.358 (7.35-7.45); ABG PO2 95.7 MM HG (80-95)
[2018-08-02] MEDS ORDERED: ENOXAPARIN 80 MG/0.8 ML SYRINGE SUBCUT SCH (02:00)
[2018-08-02] MEDS: PANTOPRAZOLE 40 MG VIAL IV SCH ×2 (02:40→09:11)
[2018-08-02] MEDS: INSULIN REGULAR 100 UNIT/ML SUBCUT SCH ×5 (02:50→21:37)
[2018-08-02 05:06] LABS: Basophils % 0.1 % (0.0-0.8); Hematocrit 41.7 VOL% (42.0-52.0); Hemoglobin 13.3 GM/DL (14.0-18.0); Immature Granulocytes % 0.7 %; Immature Granulocytes Absolute 0.06 #; Lymphocytes # 0.3 10*3/uL (1.4-4.0); Lymphocytes % 3.2 % (21.2-54.2); Mean Corpuscular HGB Conc 31.9 GM/DL (32-36); Mean Corpuscular Volume 98.3 FL (87-102); Mean Platelet Volume 10.8 FL (9.6-12.0); Monocytes % 3.5 % (1.7-12.7); Neutrophils % 92.5 % (38.7-73.9); Platelet Count 168 T/CUMM (130-400); Red Blood Count 4.24 MC/CUMM (3.8-5.5); Red Cell Distribution Width 14.5 % (9.3-17.3); White Blood Count 9.2 T/CUMM (4-12)
[2018-08-02 05:19] LABS: Calcium 8.7 MG/DL (8.5-10.1); Osmolality,Calculated 296.3 MOS/KG (273-304)
[2018-08-02 06:07] LABS: Lymphocytes 4 % (20-55); Platelet Estimate Adequate; Segmented Neutrophils 93 % (50-85); Total Cells Counted 100
[2018-08-02 06:08] LABS: Anisocytosis Slight
[2018-08-02 06:43] LABS: Hepatitis B Core IgM Quant < 0.05 Index; Hepatitis B Surface Ag Quant 0.11 Index; Hepatitis B Surface Ag Result Negative (Negative); Hepatitis C Virus Ab Quant 0.04 Index; Hepatitis C Virus Ab Result Negative (Negative)
[2018-08-02] MEDS ORDERED: CLOPIDOGREL 75 MG TABLET PO SCH (09:00)
[2018-08-02] MEDS: FUROSEMIDE 40 MG/4 ML VIAL IV SCH ×2 (09:00→15:35)
[2018-08-02] MEDS: ASPIRIN EC 81 MG TABLET PO SCH (09:57)
[2018-08-02] MEDS: ROSUVASTATIN 20 MG TABLET PO SCH (09:57)
[2018-08-02] MEDS: LOSARTAN 50 MG TABLET PO SCH (14:44)
[2018-08-02] MEDS: ENOXAPARIN 80 MG/0.8 ML SYRINGE SUBCUT SCH (14:45)
[2018-08-02] MEDS: METOPROLOL TARTRATE 100 MG TABLET PO SCH (14:45)
[2018-08-02] MEDS: MORPHINE 4 MG/1 ML VIAL IV PRN ×2 (19:33→23:41)
[2018-08-02] MEDS: ARFORMOTEROL 15 MCG/2 ML NEB RESP TX SCH (19:55)
[2018-08-02] MEDS: INSULIN GLARGINE 100 UNIT/ML SUBCUT SCH (21:37)
[2018-08-03] MEDS: NITROGLYCERIN DRIP 50 MG/250 ML BOTTLE IV SCH (00:22)
[2018-08-03] MEDS: ALBUTEROL 2.5 MG/3 ML NEB RESP TX PRN (00:43)
[2018-08-03 00:46] LABS: Apearance,Urine CLEAR (Clear); Bilirubin,Urine Negative (Negative); Blood, Urine Large mg/dL (Negative); Glucose,Urine (UA) Negative (Negative); Ketones,Urine Negative (Negative); Mucus,Urine Occasional /LPF (Occasional); Nitrite,Urine Negative (Negative); Protein,Urine 30 MG/DL; RBC,Urine 987 /HPF (0-4); Urine Color Yellow (Yellow); Urine Specific Gravity 1.008 (1.001-1.035); Urine Urobilinogen < 2.0 EU/DL (0.2-1.0)
[2018-08-03] MEDS ORDERED: FUROSEMIDE 20 MG/2 ML VIAL IV ONE (01:10)
[2018-08-03] MEDS ORDERED: ALBUTEROL/IPRATROPIUM 3 ML NEB RESP TX ONE (01:11)
[2018-08-03] MEDS: ENOXAPARIN 80 MG/0.8 ML SYRINGE SUBCUT SCH (02:41)
[2018-08-03 05:12] LABS: Basophils % 0.1 % (0.0-0.8); Eosinophils % 0.1 % (0.00-10.9); Hematocrit 39.2 VOL% (42.0-52.0); Hemoglobin 12.4 GM/DL (14.0-18.0); Immature Granulocytes % 0.4 %; Immature Granulocytes Absolute 0.04 #; Lymphocytes # 1.4 10*3/uL (1.4-4.0); Lymphocytes % 14.6 % (21.2-54.2); Mean Corpuscular HGB Conc 31.6 GM/DL (32-36); Mean Platelet Volume 10.9 FL (9.6-12.0); Monocytes % 6.6 % (1.7-12.7); Neutrophils % 78.2 % (38.7-73.9); Platelet Count 183 T/CUMM (130-400); Red Blood Count 3.96 MC/CUMM (3.8-5.5); Red Cell Distribution Width 14.6 % (9.3-17.3); White Blood Count 9.7 T/CUMM (4-12)
[2018-08-03 05:34] LABS: Bilirubin,Total 1.2 MG/DL (0.2-1.0); Osmolality,Calculated 288.3 MOS/KG (273-304); Total Protein 5.8 G/DL (6.4-8.3)
[2018-08-03] MEDS: ARFORMOTEROL 15 MCG/2 ML NEB RESP TX SCH ×2 (07:10→19:43)
[2018-08-03] MEDS: INSULIN REGULAR 100 UNIT/ML SUBCUT SCH ×5 (09:01→20:10)
[2018-08-03] MEDS: LOSARTAN 50 MG TABLET PO SCH (09:14)
[2018-08-03] MEDS: FUROSEMIDE 40 MG/4 ML VIAL IV SCH ×2 (09:14→16:47)
[2018-08-03] MEDS: METOPROLOL TARTRATE 100 MG TABLET PO SCH (09:14)
[2018-08-03] MEDS: ROSUVASTATIN 20 MG TABLET PO SCH (09:14)
[2018-08-03] MEDS: PANTOPRAZOLE 40 MG VIAL IV SCH (09:15)
[2018-08-03] MEDS: TAMSULOSIN 0.4 MG CAPSULE PO SCH (13:31)
[2018-08-03] MEDS: ASPIRIN EC 81 MG TABLET PO SCH (13:31)
[2018-08-03] MEDS: MORPHINE 4 MG/1 ML VIAL IV PRN (16:46)
[2018-08-03] MEDS: INSULIN GLARGINE 100 UNIT/ML SUBCUT SCH (20:11)
[2018-08-04] MEDS: NITROGLYCERIN DRIP 50 MG/250 ML BOTTLE IV SCH (00:26)
[2018-08-04] MEDS: ALBUTEROL 2.5 MG/3 ML NEB RESP TX PRN (02:05)
[2018-08-04] MEDS: MORPHINE 4 MG/1 ML VIAL IV PRN ×2 (03:07→10:55)
[2018-08-04 05:01] LABS: Basophils % 0.4 % (0.0-0.8); Eosinophils # 0.1 10*3/uL (0.0-0.87); Eosinophils % 1.6 % (0.00-10.9); Hemoglobin 12.1 GM/DL (14.0-18.0); Immature Granulocytes % 0.4 %; Immature Granulocytes Absolute 0.03 #; Lymphocytes # 1.5 10*3/uL (1.4-4.0); Lymphocytes % 18.9 % (21.2-54.2); Mean Corpuscular HGB Conc 31.8 GM/DL (32-36); Mean Platelet Volume 10.6 FL (9.6-12.0); Monocytes % 6.9 % (1.7-12.7); Neutrophils % 71.8 % (38.7-73.9); Platelet Count 203 T/CUMM (130-400); Red Blood Count 3.84 MC/CUMM (3.8-5.5); Red Cell Distribution Width 14.3 % (9.3-17.3)
[2018-08-04 05:09] LABS: Osmolality,Calculated 284.4 MOS/KG (273-304)
[2018-08-04] MEDS: INSULIN REGULAR 100 UNIT/ML SUBCUT SCH ×4 (07:24→20:24)
[2018-08-04] MEDS: ARFORMOTEROL 15 MCG/2 ML NEB RESP TX SCH ×2 (07:43→19:05)
[2018-08-04] MEDS ORDERED: POTASSIUM CHLORIDE 20 MEQ TABLET PO PRN (07:57)
[2018-08-04] MEDS: LOSARTAN 50 MG TABLET PO SCH (08:33)
[2018-08-04] MEDS: FUROSEMIDE 40 MG/4 ML VIAL IV SCH ×2 (08:33→16:56)
[2018-08-04] MEDS: ROSUVASTATIN 20 MG TABLET PO SCH (08:33)
[2018-08-04] MEDS: PANTOPRAZOLE 40 MG VIAL IV SCH (08:33)
[2018-08-04] MEDS: METOPROLOL TARTRATE 100 MG TABLET PO SCH (08:33)
[2018-08-04] MEDS: ASPIRIN EC 81 MG TABLET PO SCH (08:33)
[2018-08-04] MEDS: TAMSULOSIN 0.4 MG CAPSULE PO SCH (08:33)
[2018-08-04] MEDS: PANTOPRAZOLE 40 MG TABLET PO SCH (08:53)
[2018-08-04] MEDS: POTASSIUM CHLORIDE 20 MEQ TABLET PO SCH ×4 (08:54→20:24)
[2018-08-04] MEDS: PHENAZOPYRIDINE 95 MG TABLET PO SCH ×2 (11:01→16:54)
[2018-08-04] MEDS ORDERED: DILTIAZEM 30 MG TABLET PO SCH (11:18)
[2018-08-04] MEDS: INSULIN GLARGINE 100 UNIT/ML SUBCUT SCH (20:25)
[2018-08-04] MEDS: METOPROLOL TARTRATE 50 MG TABLET PO SCH (20:25)
[2018-08-05 05:32] LABS: Basophils % 0.3 % (0.0-0.8); Eosinophils # 0.1 10*3/uL (0.0-0.87); Eosinophils % 1.7 % (0.00-10.9); Hematocrit 37.5 VOL% (42.0-52.0); Hemoglobin 12.1 GM/DL (14.0-18.0); Immature Granulocytes % 0.3 %; Immature Granulocytes Absolute 0.02 #; Lymphocytes # 1.4 10*3/uL (1.4-4.0); Lymphocytes % 20.6 % (21.2-54.2); Mean Corpuscular HGB Conc 32.3 GM/DL (32-36); Mean Corpuscular Volume 96.9 FL (87-102); Mean Platelet Volume 10.7 FL (9.6-12.0); Monocytes % 8.2 % (1.7-12.7); Neutrophils % 68.9 % (38.7-73.9); Platelet Count 218 T/CUMM (130-400); Red Blood Count 3.87 MC/CUMM (3.8-5.5); Red Cell Distribution Width 14.3 % (9.3-17.3); White Blood Count 6.6 T/CUMM (4-12)
[2018-08-05 05:55] LABS: Calcium 8.5 MG/DL (8.5-10.1); Osmolality,Calculated 281.5 MOS/KG (273-304)
[2018-08-05] MEDS: ARFORMOTEROL 15 MCG/2 ML NEB RESP TX SCH (07:12)
[2018-08-05 08:42] VITALS: BP 146/81
[2018-08-05] MEDS ORDERED: FUROSEMIDE 40 MG TABLET PO SCH (09:00)
[2018-08-05] MEDS: INSULIN REGULAR 100 UNIT/ML SUBCUT SCH ×2 (09:05→11:47)
[2018-08-05] MEDS: PHENAZOPYRIDINE 95 MG TABLET PO SCH ×2 (09:06→11:47)
[2018-08-05] MEDS: METOPROLOL TARTRATE 50 MG TABLET PO SCH (09:06)
[2018-08-05] MEDS: ROSUVASTATIN 20 MG TABLET PO SCH (09:06)
[2018-08-05] MEDS: PANTOPRAZOLE 40 MG TABLET PO SCH (09:07)
[2018-08-05] MEDS: TAMSULOSIN 0.4 MG CAPSULE PO SCH (09:07)
[2018-08-05] MEDS: ASPIRIN EC 81 MG TABLET PO SCH (09:07)
[2018-08-05] MEDS: LOSARTAN 50 MG TABLET PO SCH (09:07)
[2018-08-05] MEDS: FUROSEMIDE 40 MG/4 ML VIAL IV SCH (09:10)
== END 2018-08-05 15:34 | disposition home or self-care (01) | DRG 291 ==
LOC: N.ED 23:17 → N.EDINP 08-02 01:39 → SUATTDRO 08-02 01:39 → N.CC 08-02 02:02 → N.TELEN 08-04 12:37
PROVIDERS: ADMIT Internal Medicine; ATTEND Internal Medicine

== ENCOUNTER 2018-08-07 18:49 | Inpatient (IN) ==
[2018-08-07] MEDS ORDERED: FUROSEMIDE 100 MG/10 ML VIAL IV STA (19:10)
[2018-08-07] MEDS ORDERED: ONDANSETRON 4 MG/2 ML VIAL IM STA (19:10)
[2018-08-07] MEDS ORDERED: methylPREDNISolone SOD SUC 125 MG/2 ML VIAL IV STA (19:10)
[2018-08-07] MEDS ORDERED: ALBUTEROL 2.5 MG/3 ML NEB RESP TX SCH (19:30)
[2018-08-07 20:02] LABS: Basophils % 0.3 % (0.0-0.8); Eosinophils # 0.1 10*3/uL (0.0-0.87); Eosinophils % 0.9 % (0.00-10.9); Hematocrit 39.7 VOL% (42.0-52.0); Hemoglobin 12.3 GM/DL (14.0-18.0); Immature Granulocytes % 0.5 %; Immature Granulocytes Absolute 0.03 #; Lymphocytes # 0.9 10*3/uL (1.4-4.0); Lymphocytes % 14.1 % (21.2-54.2); Mean Corpuscular Volume 99.7 FL (87-102); Mean Platelet Volume 9.9 FL (9.6-12.0); Monocytes % 12.5 % (1.7-12.7); Neutrophils % 71.7 % (38.7-73.9); Platelet Count 294 T/CUMM (130-400); Red Blood Count 3.98 MC/CUMM (3.8-5.5); Red Cell Distribution Width 14.7 % (9.3-17.3); White Blood Count 6.4 T/CUMM (4-12)
[2018-08-07 20:07] LABS: Apearance,Urine CLEAR (Clear); Bilirubin,Urine Negative (Negative); Blood, Urine Small mg/dL (Negative); Glucose,Urine (UA) Negative (Negative); Ketones,Urine Negative (Negative); Mucus,Urine Occasional /LPF (Occasional); Nitrite,Urine Negative (Negative); Protein,Urine Negative; RBC,Urine 2 /HPF (0-4); Squamous Epithelial Cell,Urine Occasional /HPF (0-10); Urine Color Yellow (Yellow); Urine Specific Gravity 1.004 (1.001-1.035); Urine Urobilinogen < 2.0 EU/DL (0.2-1.0); WBC,Urine 4 /HPF (0-6)
[2018-08-07 20:26] LABS: Bilirubin,Total 0.5 MG/DL (0.2-1.0); CKMB % 8.9 %; Calcium 8.6 MG/DL (8.5-10.1); Osmolality,Calculated 290.8 MOS/KG (273-304); Total Protein 6.6 G/DL (6.4-8.3)
[2018-08-07 20:27] LABS: Troponin I 0.125 NG/ML (0.00-0.045)
[2018-08-07 20:30] LABS: PT Patient Result 10.7 SECS; Partial Thromboplastin Time 23.6 SECS (0-40)
[2018-08-07] MEDS ORDERED: diphenhydrAMINE CAP 25 MG CAPSULE PO PRN (22:21)
[2018-08-07] MEDS ORDERED: guaiFENesin/DM ER 600-30 MG TABLET PO PRN (22:21)
[2018-08-07] MEDS ORDERED: ONDANSETRON 4 MG/2 ML VIAL IV PRN (22:21)
[2018-08-07] MEDS ORDERED: MORPHINE 4 MG/1 ML VIAL IV PRN (22:21)
[2018-08-07] MEDS ORDERED: BISACODYL 5 MG TABLET PO PRN (22:21)
[2018-08-07] MEDS ORDERED: NICOTINE 21 MG/24 HR PATCH TRANSDERM PRN (22:21)
[2018-08-07] MEDS ORDERED: ACETAMINOPHEN 325 MG TABLET PO PRN (22:21)
[2018-08-08 05:58] LABS: Albumin 2.8 G/DL (3.4-5.0); Bilirubin,Total 0.5 MG/DL (0.2-1.0); Calcium 8.5 MG/DL (8.5-10.1); Osmolality,Calculated 290.5 MOS/KG (273-304); Total Protein 6.1 G/DL (6.4-8.3)
[2018-08-08] MEDS ORDERED: FUROSEMIDE 40 MG/4 ML VIAL IV SCH (08:00)
[2018-08-08] MEDS: PANTOPRAZOLE 40 MG TABLET PO SCH (09:36)
[2018-08-08] MEDS ORDERED: NITROGLYCERIN SL 0.4 MG TABLET SL PRN (12:00)
[2018-08-08] MEDS ORDERED: HEPARIN DRIP 25,000 UNITS/500 ML PREMIX IV SCH (12:30)
[2018-08-08] MEDS ORDERED: APIXABAN 5 MG TABLET PO SCH (13:00)
[2018-08-08] MEDS: hydrALAZINE 25 MG TABLET PO SCH ×2 (15:11→20:09)
[2018-08-08] MEDS: ENOXAPARIN 80 MG/0.8 ML SYRINGE SUBCUT SCH (15:11)
[2018-08-08] MEDS: ISOSORBIDE MONONITRATE 30 MG TABLET PO SCH (15:11)
[2018-08-08] MEDS: METOPROLOL SUCCINATE XL 100 MG TABLET PO SCH ×2 (15:12→20:08)
[2018-08-08] MEDS: LOSARTAN 50 MG TABLET PO SCH (15:12)
[2018-08-08] MEDS: ASPIRIN EC 81 MG TABLET PO SCH (15:12)
[2018-08-08] MEDS: ROSUVASTATIN 20 MG TABLET PO SCH (15:12)
[2018-08-08] MEDS: FUROSEMIDE 100 MG/10 ML VIAL IV SCH (17:40)
[2018-08-08] MEDS: methylPREDNISolone SOD SUC 40 MG/1 ML VIAL IV SCH ×2 (17:40→23:35)
[2018-08-08] MEDS: ALBUTEROL/IPRATROPIUM 3 ML NEB RESP TX SCH (19:15)
[2018-08-09] MEDS: ALBUTEROL/IPRATROPIUM 3 ML NEB RESP TX SCH ×4 (01:02→19:17)
[2018-08-09 04:57] LABS: Basophils % 0.1 % (0.0-0.8); Hemoglobin 11.3 GM/DL (14.0-18.0); Immature Granulocytes % 0.9 %; Immature Granulocytes Absolute 0.08 #; Lymphocytes # 0.6 10*3/uL (1.4-4.0); Lymphocytes % 6.2 % (21.2-54.2); Mean Corpuscular HGB Conc 32.3 GM/DL (32-36); Mean Corpuscular Volume 97.5 FL (87-102); Mean Platelet Volume 10.4 FL (9.6-12.0); Monocytes % 1.8 % (1.7-12.7); Platelet Count 286 T/CUMM (130-400); Red Blood Count 3.59 MC/CUMM (3.8-5.5); Red Cell Distribution Width 14.4 % (9.3-17.3); White Blood Count 8.8 T/CUMM (4-12)
[2018-08-09 05:34] LABS: Risk Ratio 2.5; VLDL CHOLESTEROL 20.4 MG/DL
[2018-08-09 05:37] LABS: Band Neutrophils 1 % (0-10); Lymphocytes 9 % (20-55); Segmented Neutrophils 88 % (50-85); Total Cells Counted 100
[2018-08-09 05:38] LABS: Hypochromasia Slight; Platelet Estimate Normal; Reactive Lymphocytes Few
[2018-08-09 05:44] LABS: Calcium 8.2 MG/DL (8.5-10.1)
[2018-08-09] MEDS: ENOXAPARIN 80 MG/0.8 ML SYRINGE SUBCUT SCH ×2 (10:01→21:05)
[2018-08-09] MEDS: methylPREDNISolone SOD SUC 40 MG/1 ML VIAL IV SCH ×3 (10:02→23:36)
[2018-08-09] MEDS: FUROSEMIDE 100 MG/10 ML VIAL IV SCH ×2 (10:02→16:15)
[2018-08-09] MEDS: ROSUVASTATIN 20 MG TABLET PO SCH (10:03)
[2018-08-09] MEDS: metOLazone 5 MG TABLET PO SCH (10:03)
[2018-08-09] MEDS: ISOSORBIDE MONONITRATE 30 MG TABLET PO SCH (10:04)
[2018-08-09] MEDS: PANTOPRAZOLE 40 MG TABLET PO SCH (10:04)
[2018-08-09] MEDS: ASPIRIN EC 81 MG TABLET PO SCH (10:04)
[2018-08-09] MEDS: METOPROLOL SUCCINATE XL 100 MG TABLET PO SCH ×2 (10:04→21:05)
[2018-08-09] MEDS: LOSARTAN 50 MG TABLET PO SCH (10:04)
[2018-08-09] MEDS: hydrALAZINE 25 MG TABLET PO SCH ×3 (11:38→21:05)
[2018-08-10] MEDS: ALBUTEROL/IPRATROPIUM 3 ML NEB RESP TX SCH ×4 (00:53→19:34)
[2018-08-10 04:34] LABS: Basophils % 0.1 % (0.0-0.8); Hemoglobin 11.1 GM/DL (14.0-18.0); Immature Granulocytes % 0.7 %; Immature Granulocytes Absolute 0.06 #; Lymphocytes # 0.5 10*3/uL (1.4-4.0); Lymphocytes % 5.6 % (21.2-54.2); Mean Corpuscular HGB Conc 31.7 GM/DL (32-36); Mean Corpuscular Volume 96.7 FL (87-102); Monocytes % 3.8 % (1.7-12.7); Neutrophils % 89.8 % (38.7-73.9); Platelet Count 284 T/CUMM (130-400); Red Blood Count 3.62 MC/CUMM (3.8-5.5); Red Cell Distribution Width 14.2 % (9.3-17.3)
[2018-08-10 04:47] LABS: Calcium 8.7 MG/DL (8.5-10.1); Osmolality,Calculated 285.2 MOS/KG (273-304)
[2018-08-10] MEDS: METOPROLOL SUCCINATE XL 100 MG TABLET PO SCH ×2 (09:31→21:57)
[2018-08-10] MEDS: ASPIRIN EC 81 MG TABLET PO SCH (09:31)
[2018-08-10] MEDS: LOSARTAN 50 MG TABLET PO SCH (09:31)
[2018-08-10] MEDS: metOLazone 5 MG TABLET PO SCH (09:32)
[2018-08-10] MEDS: PANTOPRAZOLE 40 MG TABLET PO SCH (09:33)
[2018-08-10] MEDS: hydrALAZINE 25 MG TABLET PO SCH ×3 (09:33→21:48)
[2018-08-10] MEDS: FUROSEMIDE 100 MG/10 ML VIAL IV SCH ×2 (09:33→15:29)
[2018-08-10] MEDS: methylPREDNISolone SOD SUC 40 MG/1 ML VIAL IV SCH ×2 (09:33→15:29)
[2018-08-10] MEDS: ROSUVASTATIN 20 MG TABLET PO SCH (09:33)
[2018-08-10] MEDS: ISOSORBIDE MONONITRATE 30 MG TABLET PO SCH (09:33)
[2018-08-10] MEDS: ENOXAPARIN 80 MG/0.8 ML SYRINGE SUBCUT SCH ×2 (09:34→21:58)
[2018-08-10 11:31] LABS: CKMB % 10.9 %; Troponin I 0.069 NG/ML (0.00-0.045)
[2018-08-10] MEDS: POTASSIUM CHLORIDE 20 MEQ TABLET PO SCH (15:29)
[2018-08-10] MEDS: cefTRIAXone 1,000 MG in SYRINGE 1 EACH IV SCH (16:31)
[2018-08-10] MEDS ORDERED: MAGNESIUM SULF RIDER 2 GM in PREMIX 1 EACH IV PRN (18:57)
[2018-08-10 19:44] LABS: Apearance,Urine CLEAR (Clear); Bilirubin,Urine Negative (Negative); Blood, Urine Small mg/dL (Negative); Glucose,Urine (UA) Negative (Negative); Ketones,Urine Negative (Negative); Mucus,Urine Occasional /LPF (Occasional); Nitrite,Urine Positive (Negative); Protein,Urine Negative; RBC,Urine 5 /HPF (0-4); Urine Color Yellow (Yellow); Urine Specific Gravity 1.005 (1.001-1.035); Urine Urobilinogen < 2.0 EU/DL (0.2-1.0); WBC,Urine <1 /HPF (0-6)
[2018-08-10] MEDS: POTASSIUM CHLORIDE RIDER 10 MEQ in PREMIX 1 EACH IV PRN (22:25)
[2018-08-11] MEDS: POTASSIUM CHLORIDE RIDER 10 MEQ in PREMIX 1 EACH IV PRN (00:39)
[2018-08-11] MEDS: methylPREDNISolone SOD SUC 40 MG/1 ML VIAL IV SCH ×3 (00:51→17:00)
[2018-08-11] MEDS: ALBUTEROL/IPRATROPIUM 3 ML NEB RESP TX SCH ×4 (01:02→19:17)
[2018-08-11 05:30] LABS: Basophils % 0.1 % (0.0-0.8); Hematocrit 38.2 VOL% (42.0-52.0); Hemoglobin 12.2 GM/DL (14.0-18.0); Immature Granulocytes % 0.9 %; Lymphocytes # 0.5 10*3/uL (1.4-4.0); Lymphocytes % 4.5 % (21.2-54.2); Mean Corpuscular HGB Conc 31.9 GM/DL (32-36); Mean Corpuscular Volume 95.7 FL (87-102); Mean Platelet Volume 10.2 FL (9.6-12.0); Monocytes % 6.4 % (1.7-12.7); Neutrophils % 88.1 % (38.7-73.9); Platelet Count 324 T/CUMM (130-400); Red Blood Count 3.99 MC/CUMM (3.8-5.5); White Blood Count 11.1 T/CUMM (4-12)
[2018-08-11 05:52] LABS: Hypochromasia 1+; Lymphocytes 6 % (20-55); Ovalocytes Slight; Platelet Estimate Adequate; Segmented Neutrophils 90 % (50-85); Total Cells Counted 100
[2018-08-11 06:01] LABS: Calcium 9.2 MG/DL (8.5-10.1); Osmolality,Calculated 287.4 MOS/KG (273-304)
[2018-08-11 06:18] LABS: Free T4 (Free Thyroxine) 1.03 NG/DL (0.76-1.46)
[2018-08-11] MEDS ORDERED: MAGNESIUM SULF RIDER 2 GM in PREMIX 1 EACH IV PRN (07:13)
[2018-08-11] MEDS ORDERED: POTASSIUM CHLORIDE RIDER 10 MEQ in PREMIX 1 EACH IV PRN (07:13)
[2018-08-11] MEDS ORDERED: HEPARIN/NACL 0.9% 2 UNITS/ML 1,000 ML IV ONE (07:30)
[2018-08-11] MEDS ORDERED: LIDOCAINE 1% 20 ML VIAL ONE (07:30)
[2018-08-11] MEDS ORDERED: SODIUM CHLORIDE 0.9% 1,000 ML IV SCH (07:30)
[2018-08-11] MEDS ORDERED: fentaNYL 100 MCG/2 ML VIAL ONE (07:31)
[2018-08-11] MEDS ORDERED: MIDAZOLAM 2 MG/2 ML VIAL ONE (07:31)
[2018-08-11] MEDS: ROSUVASTATIN 20 MG TABLET PO SCH (11:28)
[2018-08-11] MEDS: POTASSIUM CHLORIDE 20 MEQ TABLET PO SCH (11:28)
[2018-08-11] MEDS: METOPROLOL SUCCINATE XL 100 MG TABLET PO SCH ×2 (11:29→21:02)
[2018-08-11] MEDS: LOSARTAN 50 MG TABLET PO SCH (11:29)
[2018-08-11] MEDS: metOLazone 5 MG TABLET PO SCH (11:29)
[2018-08-11] MEDS: ASPIRIN EC 81 MG TABLET PO SCH (11:30)
[2018-08-11] MEDS: ISOSORBIDE MONONITRATE 30 MG TABLET PO SCH (11:30)
[2018-08-11] MEDS: ENOXAPARIN 80 MG/0.8 ML SYRINGE SUBCUT SCH ×2 (11:30→21:02)
[2018-08-11] MEDS: PANTOPRAZOLE 40 MG TABLET PO SCH (11:30)
[2018-08-11] MEDS: hydrALAZINE 25 MG TABLET PO SCH ×3 (11:30→21:02)
[2018-08-11] MEDS: FUROSEMIDE 100 MG/10 ML VIAL IV SCH ×2 (11:31→16:59)
[2018-08-11] MEDS: cefTRIAXone 1,000 MG in SYRINGE 1 EACH IV SCH (11:32)
[2018-08-11] MEDS ORDERED: SODIUM CHLORIDE 0.9% 250 ML IV ONE (13:58)
[2018-08-11] MEDS ORDERED: VANCOMYCIN INJ 750 MG in SODIUM CHLORIDE 0.9% 250 ML IV ONE (15:00)
[2018-08-11] MEDS ORDERED: FUROSEMIDE 40 MG/4 ML VIAL IV SCH (19:37)
[2018-08-12] MEDS: ALBUTEROL/IPRATROPIUM 3 ML NEB RESP TX SCH ×3 (00:21→13:02)
[2018-08-12] MEDS: methylPREDNISolone SOD SUC 40 MG/1 ML VIAL IV SCH ×2 (00:35→08:53)
[2018-08-12 04:37] LABS: Basophils % 0.1 % (0.0-0.8); Hematocrit 40.4 VOL% (42.0-52.0); Hemoglobin 13.3 GM/DL (14.0-18.0); Immature Granulocytes Absolute 0.14 #; Lymphocytes # 0.5 10*3/uL (1.4-4.0); Lymphocytes % 3.3 % (21.2-54.2); Mean Corpuscular HGB Conc 32.9 GM/DL (32-36); Mean Corpuscular Volume 94.4 FL (87-102); Mean Platelet Volume 10.6 FL (9.6-12.0); Monocytes % 3.8 % (1.7-12.7); Neutrophils % 91.8 % (38.7-73.9); Platelet Count 342 T/CUMM (130-400); Red Blood Count 4.28 MC/CUMM (3.8-5.5); Red Cell Distribution Width 14.1 % (9.3-17.3); White Blood Count 13.4 T/CUMM (4-12)
[2018-08-12 04:54] LABS: Calcium 9.1 MG/DL (8.5-10.1); Calcium 9.3 MG/DL (8.5-10.1); Osmolality,Calculated 290.7 MOS/KG (273-304); Osmolality,Calculated 296.4 MOS/KG (273-304)
[2018-08-12 05:03] LABS: Lymphocytes 4 % (20-55); Platelet Estimate Normal; Polychromasia Few; Segmented Neutrophils 95 % (50-85); Total Cells Counted 100
[2018-08-12] MEDS: ENOXAPARIN 80 MG/0.8 ML SYRINGE SUBCUT SCH (08:52)
[2018-08-12] MEDS: cefTRIAXone 1,000 MG in SYRINGE 1 EACH IV SCH (08:53)
[2018-08-12] MEDS: LOSARTAN 50 MG TABLET PO SCH (08:54)
[2018-08-12] MEDS: ROSUVASTATIN 20 MG TABLET PO SCH (08:54)
[2018-08-12] MEDS: POTASSIUM CHLORIDE 20 MEQ TABLET PO SCH (08:54)
[2018-08-12] MEDS: ASPIRIN EC 81 MG TABLET PO SCH (08:55)
[2018-08-12] MEDS: PANTOPRAZOLE 40 MG TABLET PO SCH (08:55)
[2018-08-12] MEDS: ISOSORBIDE MONONITRATE 30 MG TABLET PO SCH (08:55)
[2018-08-12] MEDS: hydrALAZINE 25 MG TABLET PO SCH (08:55)
[2018-08-12] MEDS: METOPROLOL SUCCINATE XL 100 MG TABLET PO SCH (08:56)
[2018-08-12] MEDS ORDERED: metOLazone 5 MG TABLET PO SCH (09:00)
[2018-08-12] MEDS ORDERED: DEXTROSE 50% 25 GM/50 ML SYRINGE IV PRN (09:46)
[2018-08-12] MEDS ORDERED: GLUCAGON 1 MG VIAL IM PRN (09:46)
[2018-08-12] MEDS ORDERED: MEROPENEM 500 MG in SODIUM CHLORIDE 0.9% 100 ML IV SCH (10:30)
[2018-08-12] MEDS ORDERED: INSULIN REGULAR 100 UNIT/ML SUBCUT SCH (11:30)
[2018-08-12] MEDS ORDERED: AMPICILLIN/SULBACTAM 3,000 MG in SODIUM CHLORIDE 0.9% 100 ML IV ONE (11:30)
[2018-08-12 14:59] VITALS: BP 110/57
[2018-08-12] MEDS ORDERED: AMOXICILLIN 500 MG CAPSULE PO SCH ×2 (21:00)
[2018-08-12] MEDS ORDERED: AMPICILLIN/SULBACTAM 3,000 MG in SODIUM CHLORIDE 0.9% 100 ML IV SCH (21:00)
[2018-08-13] MEDS ORDERED: predniSONE 20 MG TABLET PO SCH (09:00)
[2018-08-13] MEDS ORDERED: VANCOMYCIN INJ 1,000 MG in SODIUM CHLORIDE 0.9% 250 ML IV SCH (21:00)
== END 2018-08-12 14:30 | disposition home health service (06) | DRG 286 ==
LOC: EDBD → EDUNIT# → N.ED 18:49 → N.EDINP 18:49 → N.2E 23:19
PROVIDERS: ADMIT Internal Medicine; ATTEND Internal Medicine